=== PATIENT | female | born 2000 | race Caucasian/White ===

== ENCOUNTER 2022-04-11 16:19 | Emergency (ER) | payer MEDICAID ==
[~2022-04-11] VITALS: Ht 172.7 cm; Wt 54.0 kg
[2022-04-11 16:35] VITALS: BP 114/72
== END 2022-04-11 19:40 | disposition left against medical advice (07) ==
LOC: ER 16:19
DX: Z53.21 Procedure and treatment not carried out due to patient leaving prior to being seen by health care provider (principal)